=== PATIENT | female | born 1990 ===

== ENCOUNTER → 2021-06-18 | Outpatient (CLI) | payer OTHER ==
[~2021-06-18] MED LIST: MILK THISTLE500 M2 PO; NORCO 325 MG-51 TAB PO
== END ==
LOC: MC.RAD 10:00
DX: N63.11 Unspecified lump in the right breast, upper outer quadrant (principal)

== ENCOUNTER → 2021-06-23 | Outpatient (CLI) | payer OTHER | LOC: MC.RAD 10:45 | DX: N63.10 Unspecified lump in the right breast, unspecified quadrant (principal) ==

== ENCOUNTER → 2021-07-15 | Outpatient (CLI) | payer OTHER | LOC: MC.RAD 13:54 | DX: Z12.31 Encounter for screening mammogram for malignant neoplasm of breast (principal); C50.411 Malignant neoplasm of upper-outer quadrant of right female breast; N63.24 Unspecified lump in the left breast, lower inner quadrant ==

== ENCOUNTER → 2021-07-20 | Outpatient (CLI) | payer OTHER | LOC: COL.RAD 07:51 | DX: C50.411 Malignant neoplasm of upper-outer quadrant of right female breast (principal); R91.1 Solitary pulmonary nodule; Z98.82 Breast implant status | CPT/HCPCS: Q9967 ==

== ENCOUNTER → 2021-07-29 | Outpatient (CLI) | payer OTHER | LOC: COL.RAD 13:37 | DX: N83.8 Other noninflammatory disorders of ovary, fallopian tube and broad ligament (principal) ==

== ENCOUNTER → 2021-08-04 | Outpatient (CLI) | payer OTHER | LOC: MC.RAD 07:00 | DX: C50.411 Malignant neoplasm of upper-outer quadrant of right female breast (principal) ==

== ENCOUNTER 2021-08-24 08:00 | Day surgery (SDC) | payer OTHER ==
--- NOTE | 2021-08-23 09:43 | NUR ---
JACLYN AUDIO INTERPRETOR USED TO CONFIRM TIME WITH PATIENT. INTERPRETOR NUMBER [id number]
[~2021-08-24] VITALS: Ht 172.7 cm; Wt 77.9 kg
[2021-08-24] VITALS (10 sets, daily range): BP systolic 101–122; BP diastolic 62–78; PULSE 66–80; TEMP 98–98.7
--- NOTE | 2021-08-24 10:32 | NUR ---
Patient taken per wheelchair to radiology with spouse accompaning patient.
--- NOTE | 2021-08-24 11:45 | NUR ---
Patient returns to room per wheelchair from radiology. IV fluids connected to INT site. Spouse at bedside.
--- NOTE | 2021-08-24 15:59 | NUR ---
[place] [facility] [place] ABLE TO MOVE SELF TO PT BED. PT IS STILL DROWSY FROM ANESTHESIA BUT RESPONDS TO VERBAL QUESTIONS. PT DENIES ANY PAIN. RIGHT BREAST MASECTOMY SITE IS DRESSED WITH JENNIFER DRAIN IN PLACE. DRESSING IS DRY, CLEAN AND INTACT WITH LITTLE BLOOD IN DRAIN. PT IS PLEASANT AND ABLE TO RESPOND TO QUESTIONS, SOME QUESTIONS NEED REPHRASING DUE TO LANGUAGE BARRIER. CALL LIGHT IN REACH, PHONE IN REACH, TABLE AT BEDSIDE. BED IN LOWEST POSITION, WHEELS LOCKED AND 2 RAILS ARE UP. PT DENIES ANY PAIN. WILL CONTINUE TO MONITOR
--- NOTE | 2021-08-24 18:52 | NUR ---
PT ARRIVED TO UNIT FROM [facility] [place] AFTER RIGHT SIMPLE MASECTOMY. PT VITALS HAVE REMAINED STABLE AND PATIENT STATES PAIN IS "STARTING TO WAKE UP", WILL CONTINUE TO MONITOR FOR ANY INCREASE IN PAIN. PT DRAIN HAD 30 ML OF BLOOD AND THAT WAS EMPTIED. PT HAS AT BEDSIDE, ORDERED DINNER AND MOVES STEADILY A STANDBY ASSISST. FLUIDS RUNNING IN IV.CALL LIGHT IN REACH, NO NEEDS AT THIS TIME.
--- NOTE | 2021-08-24 20:40 | NUR ---
Patient is resting in bed with family in room. Alert and oriented x 4, VSS, reports pain in incition. [place] provided just previously by day shift nurse. Incition covered with gauze, suctioning bulb in place, drainage of 10 ml bright red. Patient independent, SCDs in place. Assessment completed. No further needs at this time, call light within reach.
[2021-08-25 00:33] VITALS: BP 96/50; PULSE 61; TEMP 97.6
[2021-08-25 04:52] VITALS: BP 107/62; PULSE 69; TEMP 98.2
--- NOTE | 2021-08-25 06:56 | NUR ---
REPORT RECEIVED FROM CELESTINO GARCIA. PT AWAKE/ALERT. DENIES PAIN. NO NEEDS AT THIS TIME. CALL [place]CIN[place] IN REACH
--- NOTE | 2021-08-25 07:19 | NUR ---
Patient had a calm night. No further pain medications required. All needs met. Shift report given to day shift nurse.
[2021-08-25] MEDS ORDERED: NORCO 325 MG-51 TAB PO (07:20)
--- NOTE | 2021-08-25 07:26 | NUR ---
STUDENT NURSE AND INSTRUCTOR PERFORMED DRESSING CHANGE PER MD ORDER
[2021-08-25 07:30] VITALS: BP 111/62; PULSE 75; TEMP 98.6
--- NOTE | 2021-08-25 08:21 | NUR ---
discharge instructions reviewed with pt. questions invited and answered. IV removed by student and instructor. pt denies pain and has no needs at this time.
--- NOTE | 2021-08-25 08:37 | NUR ---
0719 Assessment completed. Dressing to rt breast CDI. DEREK drain to bulb suction, scant amount of sangious drainage. INT site to L hand intact, no redness. PT denies c/o pain. SCDs on BLE. Debbie, Student Nurse [id number] Dr. Baird here, new orders for discharge. Surgical dressing removed by Dr Baird. Incision CDI. Light gauze dressing w/ 4x4's applied to incision. DEREK drain to bulb suction. Pt denies complaint of pain. Debbie - Student Nurse [id number] Pts INT removed. Pt discharged, escorted via wheelch THIS NURSE HAS READ AND AGREES W/THE PREVIOUS NOTES BY STUDENT NURSE.
[2021-10-06] MEDS ORDERED: MILK THISTLE500 M2 PO (11:34)
== END 2021-08-25 08:28 | disposition home or self-care (01) ==
LOC: MEDICAL 08:00 → SDCO 08:00 → MEDICAL 15:27 → SDCO 08-25 08:28
DX: C50.411 Malignant neoplasm of upper-outer quadrant of right female breast (principal); Z17.0 Estrogen receptor positive status [ER+]; Z20.822 Contact with and (suspected) exposure to COVID-19
CPT/HCPCS: OP; J0690; J1100; J2250; J2405; J2704; J2795; J3010; J7120

== ENCOUNTER → 2021-08-24 | Outpatient (CLI) | payer OTHER | LOC: COL.RAD 06:50 | DX: C50.411 Malignant neoplasm of upper-outer quadrant of right female breast (principal) | CPT/HCPCS: A9541 ==

== ENCOUNTER → 2021-10-06 | Day surgery (SDC) | payer OTHER ==
[~2021-10-06] VITALS: Ht 172.7 cm; Wt 76.2 kg
[2021-10-06 11:30] VITALS: BP 108/68; PULSE 76; TEMP 97.3
[2021-10-06 13:05] VITALS: BP 101/70; PULSE 85; TEMP 97.8
--- NOTE | 2021-10-06 13:05 | NUR ---
Patient arrived on cart from PACU, escorted by Libia TIRADO. Report obtained by CELESTINO Carrington. Vitals obtained. Patient is very sleepy and responds to questions when prompted. Denies pain. Will continue to monitor per intervals.
[2021-10-06 13:20] VITALS: BP 101/84; PULSE 84
--- NOTE | 2021-10-06 13:20 | NUR ---
Patient is more alert, oriented x3. Patient requested water without ice to drink and is tolerating it well. Vitals obtained. Will continue to monitor.
[2021-10-06 13:35] VITALS: BP 100/59; PULSE 69
--- NOTE | 2021-10-06 13:35 | NUR ---
Patient is alert and oriented x3. Vitals obtained. Patient denies any pain. Patient requested buttered toast to eat. Patient was assisted with repositioning by her at this time.
--- NOTE | 2021-10-06 13:50 | NUR ---
IV discontinued at this time. Catheter tip intact and pressure dressing applied. Discharge instructions and educational material reviewed at this time with the patient and her . Both verbalized understanding and the patient signed the related paperwork. The patient and her denied any questions or concerns. The patients is assisting her to change and the patient will hit the call blake when done.
--- NOTE | 2021-10-06 14:05 | NUR ---
The patient was escorted out via wheelchair to the patient entrence by CELESTINO House. The patients has the discharge information and educational material in his hand, along with the patients belongings. The patient was transferred into the care of her , who is present to drive.
== END ==
LOC: SDCO 10:21
DX: C50.412 Malignant neoplasm of upper-outer quadrant of left female breast (principal); Z80.42 Family history of malignant neoplasm of prostate; Z80.3 Family history of malignant neoplasm of breast
CPT/HCPCS: C1788; J0690; J1644; J2250; J2704

== ENCOUNTER 2022-03-03 10:00 | Day surgery (SDC) | payer OTHER ==
[~2022-03-03] VITALS: Ht 172.7 cm; Wt 82.1 kg
[2022-03-03] VITALS (10 sets, daily range): BP systolic 102–114; BP diastolic 59–72; PULSE 69–82; TEMP 78–98.4
[2022-03-03] MEDS ORDERED: ARIMIDEX1 MG PO (10:29)
--- NOTE | 2022-03-03 10:43 | NUR ---
Initial visit; Patient and her thanked Motor Driver for offering prayer and God's Blessings as she experiences a hysterectomy. Motor Driver will keep Sarah in her prayers and mentioned that she is available to listen and be present for patient.
[2022-03-03] MEDS ORDERED: PERCOCET 325 MG1 TA2 PO (11:55)
[2022-03-03] MEDS ORDERED: MOTRIN 800800 MG/TAB PO (11:55)
--- NOTE | 2022-03-03 15:14 | NUR ---
1430 PATIENT TO ROOM 221 VIA BED FROM OR. REPORT RECIEVED BY Sincere FERREIRA RN. CARE ASSUMED AT THIS TIME. PATIENT SPEAKS NO MALTESE BUT AT BEDSIDE AND TRANSLATES. PATIENT DENIES PAIN EXCEPT THROAT DISCOMFORT. ICE CHIPS FOR THROAT DISCOMFORT.
--- NOTE | 2022-03-03 16:01 | NUR ---
1500 PATIENT SITS UP IN BED EATS CRACKERS TOLERATES WELL. NO PAIN NOTED. IVF HEPLOCKED AT THIS TIME
--- NOTE | 2022-03-03 16:38 | NUR ---
1630 PATIMATT DANGLED ON EDGE OF BED, TOLERTES WELL. TRANSFERRED TO CHAIR TO EAT SUPPER. DENIES PAIN EXCEPT FOR SORE THROAT AND WOULD LIKE ROCHA OUT IF POSSIBLE. COMPLAINS OF PAIN WITH MOVEMENT
--- NOTE | 2022-03-03 17:11 | NUR ---
1630 DR SINHA UPDATED AND ORDERS GIVEN TO TEOFILO ROCHA. 1700 ASSISTED PATIENT BACK TO BED. TOLERATE ACTIVITY WELL. AJ RED'D AT THIS TIME PER ORDER. TOLERATE WELL.
[2022-03-04 03:30] VITALS: BP 103/61; PULSE 85; TEMP 97.8
[2022-03-04 08:30] VITALS: BP 112/73; PULSE 85; TEMP 97.9
--- NOTE | 2022-03-04 08:51 | NUR ---
Patient prescribed chemotherapy agent. Notified Rema TIRADO of need for precautions with stool. Rema stated doctors are rounding now and if patient is not discharged, will need signage for precautions. Awaiting notification of plan.
--- NOTE | 2022-03-04 09:45 | NUR ---
Discharge instructions and follow up care reviewed with pt and at the bedside. Both verbalized an understanding, agreed with the plan and states no questions or concerns at this time.
== END 2022-03-04 09:50 | disposition home or self-care (01) ==
LOC: SDCO 10:00 → OB 14:30 → SDCO 03-04 09:50
DX: D25.9 Leiomyoma of uterus, unspecified (principal); C50.411 Malignant neoplasm of upper-outer quadrant of right female breast
CPT/HCPCS: OP; A4314; J0690; J1100; J1885; J2405; J2704; J3010; J7120

== ENCOUNTER → 2022-07-18 | Outpatient (CLI) | payer OTHER ==
[~2022-07-18] MED LIST changes: +ARIMIDEX1 MG PO; +MOTRIN 800800 MG/TAB PO; +PERCOCET 325 MG1 TA2 PO
== END ==
LOC: MC.RAD 10:30
DX: Z12.31 Encounter for screening mammogram for malignant neoplasm of breast (principal); Z85.3 Personal history of malignant neoplasm of breast; Z90.11 Acquired absence of right breast and nipple

== ENCOUNTER → 2023-08-15 | Outpatient (CLI) | payer OTHER | LOC: CANSCHCLI → MC.RAD 07-20 10:00 → COL.RAD 17:00 → MC.RAD 17:00 | DX: Z12.31 Encounter for screening mammogram for malignant neoplasm of breast (principal); Z98.890 Other specified postprocedural states; Z85.3 Personal history of malignant neoplasm of breast ==